=== PATIENT | female | born 1935 | race Caucasian/White ===

== ENCOUNTER 2016-09-06 11:57 | Inpatient (IN) | payer MEDICARE, OTHER ==
[~2016-09-06] VITALS: Ht 147.3 cm; Wt 53.0 kg
--- NOTE | ~2016-09-06 | HP ---
PATIENT'S NAME: [facility] AGE: 81 Y [address] ROOM: [place] [address] LOCATION: GPCU ADMIT DATE: 09/06/2016 History & Physical DISCHARGE DATE: FAMILY PHYSICIAN: Darline Real MD ATTENDING PHYSICIAN: DYLAN GOOD DATE OF SERVICE: 09/06/16 CHIEF COMPLAINT: Abnormal carotid duplex found during screening. HISTORY OF PRESENTING ILLNESS: This is an 81-year-old female, currently in the emergency room being evaluated for right carotid artery stenosis. The patient went to a health screening at her local [facility] and was found to have critical stenosis of her right carotid artery on ultrasound. The patient is currently asymptomatic and denies any changes in speech, vision, or strength. She denies any history of TIA or amaurosis fugax. The patient denies smoking history, however, when I reviewed patient's previous history and physical, it is positive for smoking history. She denies any diabetic history. She denies any coronary disease. The patient has a history of hypertension and increased cholesterol. She denies any shortness of breath, chest pain, nausea, vomiting, diarrhea, or abdominal pain. She denies any claudication. The patient does take aspirin and Lipitor. She denies any fevers or chills. Denies any pain. Upon arrival to the ER, the patient did have a carotid ultrasound done by hospital staff, which revealed highest velocities of 292/78. CTA ordered and there is 90% stenosis of right ICA. PAST MEDICAL HISTORY: Essential hypertension, hypercholesterolemia. SURGICAL HISTORY: 1. Tonsillectomy. 2. Appendectomy. 3. x2. 4. Orthopedic surgery. FAMILY HISTORY: Family history of MT and CVA. SOCIAL HISTORY: There is a history of tobacco abuse unsure of amount. None currently. Denies any alcohol or illicit drug use. ALLERGIES: NO KNOWN DRUG ALLERGIES. PATIENT'S NAME: [facility] AGE: 81 Y [address] ROOM: [address] [place] [address] LOCATION: GPCU ADMIT DATE: 09/06/2016 History & Physical DISCHARGE DATE: FAMILY PHYSICIAN: Darline Real MD ATTENDING PHYSICIAN: DYLAN GOOD MEDICATIONS: See current medication reconciliation. REVIEW OF SYSTEMS: A 10-point review of systems completed, positives addressed in the history of presenting illness. PHYSICAL EXAMINATION: VITAL SIGNS: Temperature 96.1, heart rate 60, respiratory rate 20, oxygen saturations 96% on room air, blood pressure 193/81. GENERAL: The patient is in no acute distress. She is alert and oriented x3. Does appear anxious. SKIN: Warm, pink, and dry without rashes. HEENT: Head: Normocephalic and atraumatic. Ears without drainage. Eyes: Sclerae white. Conjunctivae pink. Extraocular movements intact. PERRLA. Nose without drainage. Throat: Oral mucosa pink and moist. No exudate or erythema. NECK: Without adenopathy. No evidence of JVD. Trachea midline. RESPIRATORY: Lung sounds are clear to auscultation bilaterally. Even and nonlabored. CARDIOVASCULAR: Regular rate and rhythm. Systolic murmur. GASTROINTESTINAL: Bowel sounds active x4. Soft and nontender. No organomegaly. EXTREMITIES: Bilateral radial, femoral, dorsalis pedis, and posterior tibialis pulses. 2+ on palpation. No cyanosis. No edema. Warm to touch. Active range of motion throughout. NEUROLOGICAL: No focal deficits. Strength 5/5 bilaterally. No deficits in sensation. LABORATORY DATA: Chemistry: Sodium 142, potassium 4.2, chloride 108, CO2 of 27, BUN 19, creatinine 0.8, glucose 109. Hematology: White blood cell count 9.3, hemoglobin 13.3, hematocrit 41.0, platelets 248. IMPRESSION AND PLAN: Right carotid artery stenosis. We have reviewed CTA results as well as carotid duplex, which is supportive of critical carotid artery stenosis, requiring right carotid endarterectomy tonight. Plan for right carotid endarterectomy with Dr. Good. Dr. Good has discussed plan with the patient along with risks and benefits. The patient has been n.p.o. since last night and will continue to remain n.p.o. until surgery. The patient is to continue on aspirin. The patient has received 2 g of Ancef prior to procedure. The patient will be admitted to the hospital postoperatively. PATIENT'S NAME: [facility] AGE: 81 Y [address] ROOM: [place] [address] [facility] ADMIT DATE: 09/06/2016 History & Physical DISCHARGE DATE: FAMILY PHYSICIAN: Darline Real MD ATTENDING PHYSICIAN: DYLAN GOOD MARYANN CHANCE APRN FOR DYLAN GOOD MD TO/modl /[id number] D: [id number] T: [id number] HISTORY & PHYSICAL
--- NOTE | ~2016-09-06 | CON ---
PATIENT'S NAME: [facility] AGE: 81 Y [address] ROOM: [place] [address] LOCATION: GPCU ADMIT DATE: 09/06/2016 Consultation DISCHARGE DATE: FAMILY PHYSICIAN: Darline Real MD ATTENDING PHYSICIAN: ERIC GOOD DATE OF CONSULTATION: 09/06/2016 REFERRING PHYSICIAN: Eric Good MD REASON FOR CONSULTATION: Medical management. HISTORY OF PRESENT ILLNESS: The patient is an 81-year-old female, who went to a free health screening at a [employer] early in the morning today. She was found to have critical right carotid artery stenosis. She has undergone a right carotid endarterectomy in the course of the day today. She is now recovering from the procedure and a hospitalist consult was requested. At this point, the patient has no complaints aside from fatigue. She denies any chest pain, shortness of breath, nausea, vomiting, diarrhea, or palpitations. REVIEW OF SYSTEMS: All systems have been reviewed and are negative aside from pertinent positives mentioned above. PAST MEDICAL HISTORY: As reported by the patient is that of hypertension. PAST SURGICAL HISTORY: None recently. SOCIAL HISTORY: The patient has not had any history or ongoing toxic habits. FAMILY HISTORY: Significant for multiple strokes on both sides of the family. CURRENT MEDICATIONS: 1. Aspirin. 2. Atorvastatin 80. 3. Calcium. 4. Vitamin D. 5. Cholecalciferol. PATIENT'S NAME: [facility] AGE: 81 Y [address] ROOM: [place] [address] LOCATION: GPCU ADMIT DATE: 09/06/2016 Consultation DISCHARGE DATE: FAMILY PHYSICIAN: Darline Real MD ATTENDING PHYSICIAN: ERIC GOOD 6. Zetia. 7. Metoprolol 50 daily. PHYSICAL EXAMINATION: VITAL SIGNS: Blood pressure of 180/74, heart rate is in the 70s, saturating 100% on 2 L nasal cannula, respirations are 12, and she is afebrile. GENERAL APPEARANCE: Well-developed, well-nourished elderly female, in no acute distress. NEUROLOGIC: Nonfocal. HEENT: Eye exam shows pupils are equal and reactive to light. LYMPHATIC: Shows no cervical lymphadenopathy. ENDOCRINE: Shows no thyromegaly. LUNGS: Clear to auscultation bilaterally. HEART: Reveals regular rate and rhythm with 2/6 noncrescentic murmur. GI: Abdomen is soft, nontender, nondistended. : No costovertebral angle tenderness. VASCULAR: 2+ pedal pulses. SKIN: Reveals a soft dressing over the right carotid artery. PSYCHIATRIC: Reveals appropriate mood, cognition, and affect. MUSCULOSKELETAL: Unremarkable. LABORATORY DATA: Studies done today show an unremarkable CBC and a metabolic profile. IMPRESSION AND RECOMMENDATION: This is an 81-year-old female, postop day 0 for right carotid endarterectomy. Individual problems to be addressed: 1. Accelerated hypertension. The patient has been given 2 doses of labetalol for her blood pressure. We will restart her on her home metoprolol. If labetalol is insufficient to control her blood pressure, we will put her on Cardene drip and consider adding an additional blood pressure agent. 2. A 2/6 systolic murmur most likely consistent with mitral regurgitation; the patient told me that she has had an echocardiogram with Dr. Brandon approximately 5 years ago and this can be followed up as outpatient. 3. Pain control and deep vein thrombosis prophylaxis as per primary service. DISPOSITION: We will inform Dr. Real, the patient's primary care provider, that she is in the hospital and we will give them a courtesy consult and see if Dr. Real or her partners would like to take over the management of this patient. Additional management will depend on clinical course. Time dedicated to this patient encounter is 35 minutes. PATIENT'S NAME: [facility] AGE: 81 Y [address] ROOM: [address] [address] LOCATION: GPCU ADMIT DATE: 09/06/2016 Consultation DISCHARGE DATE: FAMILY PHYSICIAN: Darline Real MD ATTENDING PHYSICIAN: ERIC GOOD MD LEONCIO PARSONS/tonny /[id number] d: 09/07/16 0256 t: 09/10/16 2034, CONSULTATION REPORT
--- NOTE | ~2016-09-06 | ER ---
PATIENT'S NAME: [facility] AGE: 81 Y [address] ROOM: [place] [id number] LOCATION: GPCU ADMIT DATE: 09/06/2016 ER/Outpatient Report DISCHARGE DATE: FAMILY PHYSICIAN: Darline Real MD ATTENDING PHYSICIAN: DYLAN GOOD Time of Arrival: 1157 hours. Time of Evaluation: 1235 hours. CHIEF COMPLAINT: Possible carotid artery blockage. HISTORY OF PRESENT ILLNESS: This is an 81-year-old female, who presents to the ER, who states she was having a screening done [facility]. They did a Doppler her carotid arteries, and told her that it looks bad, and that she should either followup with her primary care physician or go straight to the emergency room. She did tell them that her primary care physician was out of the office today, so they suggested that she come to the emergency room. The patient states she has had no symptoms, no visual changes, no lightheadedness or dizziness. No shortness of breath. No cough. No chest pain. She states she does have history of hypertension, hypercholesterolemia. Other than that is negative. She denies any troubles with urination. No nausea, vomiting, or diarrhea. ALLERGIES: NO KNOWN ALLERGIES. MEDICATIONS: Please see medication list in nurse's notes. PAST MEDICAL HISTORY: 1. Hypertension. 2. Hypercholesterolemia. 3. She states that she is an anxious person. FAMILY HISTORY: She has a family history of her parents passing away of a myocardial infarction as well as CVA. SOCIAL HISTORY: Denies smoking, drug, or alcohol use. REVIEW OF SYSTEMS: A 10-point review of systems was completed and was negative with the exception of those discussed in the HPI. PATIENT'S NAME: [facility] AGE: 81 Y [address] ROOM: [address] [address] LOCATION: GPCU ADMIT DATE: 09/06/2016 ER/Outpatient Report DISCHARGE DATE: FAMILY PHYSICIAN: Darline Real MD ATTENDING PHYSICIAN: DYLAN GOOD PHYSICAL EXAMINATION: VITAL SIGNS: Weight 50 kg taken, blood pressure is 193/81, pulse 60, respirations 20, temperature 96.1 degrees tympanically, saturations 96% on room air. Lucretia Coma Score is 15. GENERAL: An alert, slightly anxious female, in no acute distress. HEENT: Head: Normocephalic. She does display moist mucous membranes. Eyes: Pupils are equal and reactive to light. LUNGS: Clear to auscultation bilaterally. HEART: Regular rate and rhythm. She does have a murmur present. ABDOMEN: Soft, nontender. She has good bowel sounds throughout. EXTREMITIES: No clubbing or cyanosis. She has full range of motion of all limbs. SKIN: Warm, dry, and intact. LABORATORY DATA: CBC: White count is 9.3, hemoglobin is 13.3, platelets 248, ANC is 6.4. CMS: Glucose 109, creatinine 0.8, BUN 19, estimated GFR is greater than 60. We did do a carotid Dopplers here in the emergency room, and the tech reports that her right carotid is critical, and her left carotid is moderate to severely blocked. CTA was ordered after carotid Dopplers. IMPRESSION: Right Carotid artery stenosis. ASSESSMENT AND PLAN: Discussed the patient's care with Dr. Uriostegui. We did start an IV in the ER for her CT scan. The patient's primary care physician is Dr. Real. I did call Dr. Good, our vascular surgeon and spoke with him regarding the patient. He states that he would like her to have a CT angiogram done, and then he will be coming to evaluate her in the ER. The patient rested comfortably here her entire stay, and we will be turning the care over to Dr. Good at this time. The patient and the patient's understand and agree with care. CODY WOODARD PA-C FOR MD MICHEAL ABRAMS/tonny /[id number] d: 09/06/162103 t: 09/14/16921, OUTPATIENT REPORT
--- NOTE | ~2016-09-06 | ENPV ---
Carotid Duplex Study Demographics Patient Name MATILDE BAZAN Date of Study 09/06/2016 Patient Number [id number] Gender Female Date of 1935 Age 81 Visit Number [id number] Height Accession Number [id number] Weight Room Number G6337 BSA BMI Referring Jefferson WILSON Interpreting Florentino Reyes MD Physician Physician Physician Ordering Jefferson Coker Accordion Tuner Physician STEVE Embedded Systems Designer Lynda Steel, RT,RVT,RDCS Conclusions Summary Critical RIght Carotid stenosis. Procedure Type of Study: Cerebral:Carotid, Carotid Doppler Bilateral. Appropriate Use Criteria:9 Patient Status:STAT. Study Location:ER. Technical Quality:Adequate visualization. - Preliminary reported to:Quentin GARDNER nurse. Velocities are measured in cm/s ; Diameters are measured in cm Carotid Right Measurements Carotid Left Measurements + +--------+--------+ + + + +--------+- -------+ + + !Location !PSV !EDV !Angle !%Stenosis ! !Location !PSV !E DV !Angle !%Stenosis ! + +--------+--------+ + + + +--------+- -------+ + + !Prox CCA !62 !15 !56 !1-39% ! !Prox CCA !68 !1 4 !38 !1-39% ! + +--------+--------+ + + + +--------+- -------+ + + !Dist CCA !44 !10 !56 !1-39% ! !Dist CCA !75 !1 6 !58 !1-39% ! + +--------+--------+ + + + +--------+- -------+ + + !Prox ICA !267 !86 !38 !80-99% ! !Prox ICA !72 !1 4 !58 !40-59% ! + +--------+--------+ + + + +--------+- -------+ + + !Mid ICA !280 !72 !38 !80-99% ! !Mid ICA !176 !3 8 !52 !60-79% ! + +--------+--------+ + + + +--------+- -------+ + + !Dist ICA !292 !78 !38 !80-99% ! !Dist ICA !130 !4 0 !42 !40-59% ! + +--------+--------+ + + + +--------+- -------+ + + !Prox ECA !100 ! !52 ! ! !Prox ECA !81 ! !58 ! ! + +--------+--------+ + + + +--------+- -------+ + + !Vertebral !49 ! !56 ! ! !Vertebral !36 ! !38 ! ! + +--------+--------+ + + + +--------+- -------+ + + - There is antegrade vertebral flow noted on the right side. - There is antegrade verte bral flow noted on the left side. - Add'l Measurements:Subclavian PRV 149 cm/sICAPSV/CCAPSV - Add'l Measurements:Subcl yaima PRV 86 cm/sICAPSV/CCAPSV 4.73.ICAEDV/CCAEDV 5.8. 2.58.ICAEDV/CCAEDV 2.85. Signature dtt: DYLAN GARCIA dtd: 09/06/16 1315 Physician Self Edit
--- NOTE | ~2016-09-06 | OR ---
PATIENT'S NAME: MATILDE BAZAN [facility] AGE: 81 Y [address] ROOM: [address] [address] LOCATION: GPCU ADMIT DATE: 09/06/2016 OR/Procedure Report DISCHARGE DATE: FAMILY PHYSICIAN: Darline Real MD ATTENDING PHYSICIAN: ERIC GOOD SURGEON: Eric Good MD DRAFTER SEISMOGRAPH: DATE OF PROCEDURE: 09/06/2016 PREOPERATIVE DIAGNOSIS: High-grade right internal carotid artery stenosis. POSTOPERATIVE DIAGNOSIS: High-grade right internal carotid artery stenosis. PROCEDURES: Right carotid endarterectomy. LADDERMAN: Treasure Jaramillo. ANESTHESIA: General. ESTIMATED BLOOD LOSS: 100 mL. OPERATIVE FINDINGS: Near-occlusive lesion on the right ICA, heavily calcified, neurologically intact at the end of the case. DESCRIPTION OF PROCEDURE: The patient was brought to the operating room, placed under general anesthesia, prepped and draped in a sterile manner. Preoperative time-out was performed. We made a standard incision along the anterior border of the sternocleidomastoid muscle. We transected the platysma; dissected the internal jugular; identified the facial vein, which was ligated and transected; dissected out the common external, internal, as well as the superior thyroid. A clip was placed on the superior thyroid. We then placed clamps on the 3 major vessels after administering 5000 units of heparin. We made arteriotomy in the common, extended onto the internal using Bird scissors. We then passed a 5 x 3 Sundt shunt. Flow was confirmed using Doppler. We removed the plaque in its entirety. We then performed a standard 6-0 [place] anastomosis bovine pericardial patch. Before completing anastomosis, we clamped and removed the shunt. We allowed for backbleeding at the internal as well as flushing of the common. We completed the anastomosis, removed the clamp from the common, and the external, waited 10 heartbeats and removed the clamp from the internal. Any bleeding sites were repaired with 6-0 Prolene. We then reversed the heparin with use of protamine. We used thrombin locally in the wound. Deep layers were closed with 2-0 and 3-0 Vicryl. Skin was closed with running 4-0 Monocryl. The patient tolerated the procedure well and awoke in the operating room, neurologically intact, transferred to the floor. PATIENT'S NAME: MATILDE BAZAN [facility] AGE: 81 Y [address] ROOM: [address] [address] LOCATION: GPCU ADMIT DATE: 09/06/2016 OR/Procedure Report DISCHARGE DATE: FAMILY PHYSICIAN: Darline Real MD ATTENDING PHYSICIAN: ERIC GOOD ERIC GOOD MD FKM/modl /[id number] d: 09/07/16 0205 t: 09/09/16 1001, OPERATIVE SUMMARY
[2016-09-06 13:17] LABS: BASOPHIL # 0.1 K/uL (0.0-0.2); BASOPHIL % 1.2 %; EOSINOPHIL # 0.1 K/uL (0.0-0.5); EOSINOPHIL % 0.8 %; HEMOGLOBIN 13.3 g/dL (10.0-15.0); IMMATURE GRANULOCYTE % 0.2 %; LYMPHOCYTE # 2.1 K/uL (0.8-4.0); LYMPHOCYTE % 22.6 %; MCH 30.5 pg (27.0-34.0); MCHC 32.4 gm/dL (32.0-36.5); MONOCYTE # 0.6 K/uL (0.0-1.0); MPV 10.5 fl (9.4-12.4); NEUTROPHIL # (ANC) 6.4 K/uL (1.8-7.8); NEUTROPHIL % 69.2 %; NRBC % 0 /100WBC (0-0.00); PLATELET COUNT 248 K/uL (150-450); RBC 4.36 M/uL (3.00-5.00); RDW-CV 13.6 % (11.9-14.6); WBC 9.3 K/uL (4.0-11.0)
[2016-09-06 13:35] LABS: ALBUMIN 4.2 gm/dL (3.5-5.0); ALK PHOS 81 IU/L (33-138); ALT 32 IU/L (12-78); ANION GAP 11.2 (10.0-19.0); AST 25 IU/L (10-40); BLOOD UREA NITROGEN 19 mg/dL (6-24); CALCIUM 9.5 mg/dL (8.5-10.5); CHLORIDE 108 mMol/L (96-110); CO2 27 mMol/L (22-32); CREATININE 0.8 mg/dL (0.5-1.1); ESTIMATED GFR (MDRD EQUATION) > 60; POTASSIUM 4.2 mMol/L (3.7-5.1); SODIUM 142 mMol/L (135-145); TOTAL BILIRUBIN 0.9 mg/dL (0.0-1.5); TOTAL PROTEIN 7.6 g/dL (6.0-8.4)
[2016-09-06] MEDS ORDERED: LIPITOR80 MG PO (20:03)
[2016-09-06] MEDS ORDERED: LOPRESSOR50 MG PO (20:04)
[2016-09-06] MEDS ORDERED: ZETIA10 MG PO (20:04)
[2016-09-06] MEDS ORDERED: ASPIRIN LO-DOSE81 MG PO (20:05)
[2016-09-06] MEDS ORDERED: VITAMIN D1000 UNIT PO (20:05)
[2016-09-06] MEDS ORDERED: CALTRATE 600 WI1 TAB PO (20:06)
--- NOTE | 2016-09-07 00:23 | NUR ---
Significant Event: Patient arrived to emergency room for evaluation of right carotid artery stenosis. Patient went to OR for right endarterectomy. Patient arrived on the floor at 1856 alert and orientated x3. Dressing to right neck remains clean, dry, and intact. ART line to right radial remains intact and readings are clearly designated on shelter monitor. Neck circumference measures at 35.5. Patient has past medical history of hypertension and hyperlipidemia.
--- NOTE | 2016-09-07 05:05 | NUR ---
Significant Event: Pt A&Ox3. VS stable, on 1L nc. Did have elevated pressures earlier in the night, gave labetolol x2 then Dr. Nicole ordered cardene gtt. Pt's pressures better and stopped the cardene gtt. Incision dressing remains C/D/I. Incision has SQ sutures and dermabond closure, with primapore dressing overtop. Pulled ART line this AM. Ambulation is up as tolerated. Have been getting to BSC. Fluids are to be continued to run until 0700. PIV x2 RAC--currently connected to cardene; LH with D5 1/2NS & 20KCl @ 75. Pt does have audible heart murmur. Follow up: Wean down to RA. Advance activity. Continue plan of care.
[2016-09-07 05:20] LABS: ANION GAP 12.3 (10.0-19.0); BLOOD UREA NITROGEN 13 mg/dL (6-24); CALCIUM 8.3 mg/dL (8.5-10.5); CHLORIDE 106 mMol/L (96-110); CO2 23 mMol/L (22-32); CREATININE 0.8 mg/dL (0.5-1.1); ESTIMATED GFR (MDRD EQUATION) > 60; POTASSIUM 4.3 mMol/L (3.7-5.1); SODIUM 137 mMol/L (135-145)
[2016-09-07 05:56] LABS: BASOPHIL % 0.2 %; HEMOGLOBIN 10.9 g/dL (10.0-15.0); IMMATURE GRANULOCYTE # 0.1 K/uL (0.0-0.3); IMMATURE GRANULOCYTE % 0.5 %; LYMPHOCYTE # 1.1 K/uL (0.8-4.0); LYMPHOCYTE % 9.3 %; MCH 30.8 pg (27.0-34.0); MCV 93.2 fl (83.0-98.0); MONOCYTE # 0.7 K/uL (0.0-1.0); MONOCYTE % 6.3 %; MPV 11.2 fl (9.4-12.4); NEUTROPHIL # (ANC) 9.5 K/uL (1.8-7.8); NEUTROPHIL % 83.7 %; NRBC % 0 /100WBC (0-0.00); PLATELET COUNT 202 K/uL (150-450); RBC 3.54 M/uL (3.00-5.00); RDW-CV 13.5 % (11.9-14.6); WBC 11.4 K/uL (4.0-11.0)
[2016-09-07] MEDS ORDERED: ZOFRAN8 M1 PO (10:41)
--- NOTE | 2016-09-07 15:32 | NUR ---
orders received to discharge patient home. tele monitor, and iv dc'd. pt still c/o nausea, but wanting to go home. zofran was given earlier this am with mild improvement.Suad Samaniego'anoop. [employer] called, and notified of patient request to go home, and ok with it. discharge instructions explainned and given to patient and . no further questions.taken downstairs per wheelchair by primary rn.
[2016-09-08] MEDS ORDERED: COLACE100 MG PO (18:44)
[2016-09-08] MEDS ORDERED: MIRALAX17 GM PO (18:45)
[2016-09-08] MEDS ORDERED: PRINIVIL (ZESTRI5 MG PO (18:45)
[2016-09-08] MEDS ORDERED: ZOFRAN4 MG PO (18:49)
== END 2016-09-07 13:30 | disposition disaster alternative care site (69) | DRG 39 ==
LOC: GMED 11:57 → GPCU 15:08
PROVIDERS: Physician Assistant Medical; ADMIT Surgery Vascular Surgery
PROC: 03CK0ZZ Extirpation of Matter from Right Internal Carotid Artery, Open Approach (ICD-10-PCS; principal; 2016-09-06)
PROC: 03UK0JZ Supplement Right Internal Carotid Artery with Synthetic Substitute, Open Approach (ICD-10-PCS; 2016-09-06)
DX: I65.21 Occlusion and stenosis of right carotid artery (principal); I34.0 Nonrheumatic mitral (valve) insufficiency; I10 Essential (primary) hypertension; E78.5 Hyperlipidemia, unspecified; M81.0 Age-related osteoporosis without current pathological fracture; E78.00 Pure hypercholesterolemia, unspecified; F41.9 Anxiety disorder, unspecified; Z87.891 Personal history of nicotine dependence
CPT/HCPCS: J0690; J1100; J1644; J1650; J2250; J2405; J2720; J3480; J7050; J7120

== ENCOUNTER 2016-09-07 20:26 | Observation (INO) | payer MEDICARE, OTHER ==
[~2016-09-07] VITALS: Ht 147.3 cm; Wt 52.8 kg
--- NOTE | ~2016-09-07 | HP ---
PATIENT'S NAME: [facility] AGE: 81 Y [address] ROOM: [place] [address] LOCATION: GPCU ADMIT DATE: 09/08/2016 History & Physical DISCHARGE DATE: FAMILY PHYSICIAN: Darline Real MD ATTENDING PHYSICIAN: TALYA MCKINLEY V DATE OF SERVICE: CHIEF COMPLAINT: I do not feel well. HISTORY OF PRESENT ILLNESS: The patient is an 81-year-old female postop day 1 for elective right carotid endarterectomy for asymptomatic critical internal carotid artery stenosis. The patient had an uneventful course after her surgery in the course of last 24 hours and was discharged today. She comes back to the hospital with complaints of just "not feeling well." She really is not able to specify any other symptoms that are bothering her. She does endorse some abdominal discomfort, but no diarrhea, nausea, vomiting, or constipation. No chest pain or diaphoresis. In the ER, the patient was found to be transiently hypoxic in high 80s and returned to normal saturations on 2 L nasal cannula. When I saw the patient, she appears quite comfortable, and when I took the oxygen off, her saturations remained in the low 90s. REVIEW OF SYSTEMS: She denies any significant pain, drainage to the postsurgical site, dysuria, or syncope. All systems have been reviewed and negative except for pertinent positives mentioned above. PAST MEDICAL HISTORY: 1. Status post carotid endarterectomy, postop day 1. 2. Hypertension. SOCIAL HISTORY: The patient has no history of ongoing toxic habits. FAMILY HISTORY: Reviewed and is noncontributory due to advanced age. CURRENT MEDICATIONS: 1. Aspirin. 2. Atorvastatin. PATIENT'S NAME: [facility] AGE: 81 Y [address] ROOM: [place] [address] LOCATION: GPCU ADMIT DATE: 09/08/2016 History & Physical DISCHARGE DATE: FAMILY PHYSICIAN: Darline Real MD ATTENDING PHYSICIAN: TALYA MCKINLEY V 3. Calcium with vitamin D. 4. Cholecalciferol. 5. Zetia. 6. Metoprolol. PHYSICAL EXAMINATION: VITAL SIGNS: Blood pressure 164/80, heart rate is in the 80s, saturation as per HPI, and temperature 98.2. GENERAL: Appears as a well-developed, well-nourished, elderly female, in no acute distress. NEUROLOGIC: Nonfocal. EYES: Exam shows pupils are equal and reactive to light. LYMPHATICS: Exam shows no cervical lymphadenopathy. ENT: Reveals a well-healing dry and nondraining right carotid endarterectomy postop incision. LUNGS: Clear to auscultation in all [place]. HEART: Regular rate and rhythm with no appreciable murmurs, gallops, or rubs. ABDOMEN: Soft, nontender, nondistended. : Reveals no costovertebral angle tenderness. VASCULAR: A 2+ pedal pulses. MUSCULOSKELETAL: No muscle or joint abnormalities. PSYCHIATRIC: Appropriate mood, cognition, and affect. LABORATORY DATA: Studies performed in the ER significant for an unremarkable chest x-ray and an unremarkable basic metabolic profile and a CBC. ASSESSMENT AND PLAN: This is an 81-year-old female who will be admitted for observation with transient hypoxia after recently having undergone a right carotid endarterectomy. We will monitor her oxygen saturation in the hospital and we will see how she is feeling in the morning. We will provide her with incentive spirometry as she might just have some atelectasis related to recent surgery. Additional management will depend on clinical course. Time dedicated to this patient's encounter is 25 minutes. MD LEONCIO PARSONS/tonny PATIENT'S NAME: [facility] AGE: 81 Y [address] ROOM: [place] [address] LOCATION: GPCU ADMIT DATE: 09/08/2016 History & Physical DISCHARGE DATE: FAMILY PHYSICIAN: Darline Real MD ATTENDING PHYSICIAN: TALYA MCKINLEY V /[id number] D: [id number] T: [id number] HISTORY & PHYSICAL
--- NOTE | ~2016-09-07 | ER ---
PATIENT'S NAME: [facility] AGE: 81 Y [address] ROOM: [address] [address] LOCATION: GPCU ADMIT DATE: 09/08/2016 ER/Outpatient Report DISCHARGE DATE: FAMILY PHYSICIAN: Darline Real MD ATTENDING PHYSICIAN: TALYA MCKINLEY V CHIEF COMPLAINT: Shortness of breath, postop carotid surgeries. TIME OF THE PATIENT ARRIVAL: 2025. TIME OF THE PATIENT EVALUATION: 2025. HISTORY OF PRESENT ILLNESS: This is an 81-year-old female who presents to the ER who states that she is not feeling well. The patient was seen here in the emergency room yesterday and was found to have a right carotid stenosis and underwent carotid endarterectomy by Dr. Good. The patient was doing well today, she was dismissed home from the hospital around 2 o'clock this afternoon, and she does state that she is just not feeling well. She does feel short of breath. She denies any chest pain, no vomiting, no diarrhea, and no changes in vision. She denies any other problems at this time. ALLERGIES: NO KNOWN ALLERGIES. MEDICATIONS: Please see medication list nurse's notes. PAST MEDICAL HISTORY: Essential hypertension, hypercholesterolemia, tonsillectomy, appendectomy, C- section x2, orthopedic surgery, and a recent carotid endarterectomy. SOCIAL HISTORY: Denies smoking, drug, or alcohol use. REVIEW OF SYSTEMS: A 10-point review of systems was completed and was negative with the exception of those discussed in the HPI. PHYSICAL EXAMINATION: VITAL SIGNS: Height 4 feet, 10 inches stated, weight 52.5 kg taken, blood pressure is 179/83, pulse 79, respirations 14, temperature 98.2 degrees PATIENT'S NAME: [facility] AGE: 81 Y [address] ROOM: [address] [address] LOCATION: GPCU ADMIT DATE: 09/08/2016 ER/Outpatient Report DISCHARGE DATE: FAMILY PHYSICIAN: Darline Real MD ATTENDING PHYSICIAN: TALYA MCKINLEY V tympanically, and saturations 90% on room air. GENERAL: Alert, slightly anxious appearing 81-year-old female in no acute distress. HEENT: Head: Normocephalic. She has tacky mucous membranes. Eyes: Pupils are equal, reactive to light. NECK: She does have a close incision on the right-side of her neck. There is some ecchymosis around there. There is no active drainage from the incision site. LUNGS: Clear to auscultation bilaterally. HEART: She does have a systolic murmur noted. ABDOMEN: Soft, it is nontender, she has good bowel sounds throughout. EXTREMITIES: No clubbing or cyanosis. She does have full range of motion of all limbs. MUSCULOSKELETAL: She has no edema. She has good sensation bilaterally upper and lower extremities. NEUROLOGICAL: Gait is steady. She has equal strength bilaterally. No focal deficits. LABORATORY DATA: CBC: White count is 11.8, hemoglobin is 11.7, and platelets 210. ANC is 8.5. CMS glucose is 120 otherwise unremarkable. Chest x-ray was negative for any infiltrate. KUB was unremarkable. IMPRESSION: 1. Hypoxia. 2. Status post carotid endarterectomy. ASSESSMENT AND PLAN: I did discuss the patient's care with Dr. Uriostegui. Dr. Uriostegui also evaluated the patient. While the patient was here, her oxygen saturations kept dipping down into the mid 80s on room air, we would apply the oxygen, her saturations would increase back up to 97%, we would then titrate her back down off the oxygen, and her oxygen saturations would go back down into the mid 80s. Dr. Uriostegui did speak with Dr. Good in regards to the patient as well as Dr. Mckinley. Dr. Mckinley will be coming down to the emergency room to evaluate and admit the patient for observation this evening. The patient and the patient's understand and agree with care. CODY WOODARD PA-C FOR MD MICHEAL ABRAMS/tonny I have personally evaluated this patient. I agree with the assessment and plan as documented above. Kenney Uriostegui MD PATIENT'S NAME: MATILDE BAZAN [facility] AGE: 81 Y [address] ROOM: [place] [address] LOCATION: GPCU ADMIT DATE: 09/08/2016 ER/Outpatient Report DISCHARGE DATE: FAMILY PHYSICIAN: Darline Real MD ATTENDING PHYSICIAN: TALYA MCKINLEY V /[id number] d: 09/08/16525 t: 09/14/16924, OUTPATIENT REPORT
[~2016-09-07 20:26] MED LIST: ASPIRIN LO-DOSE81 MG PO; CALTRATE 600 WI1 TAB PO; LIPITOR80 MG PO; LOPRESSOR50 MG PO; VITAMIN D1000 UNIT PO; ZETIA10 MG PO; ZOFRAN8 M1 PO
[2016-09-07 20:57] LABS: BASOPHIL # 0.1 K/uL (0.0-0.2); BASOPHIL % 0.4 %; EOSINOPHIL % 0.3 %; HEMOGLOBIN 11.7 g/dL (10.0-15.0); IMMATURE GRANULOCYTE % 0.3 %; LYMPHOCYTE # 2.2 K/uL (0.8-4.0); LYMPHOCYTE % 18.6 %; MCH 31.1 pg (27.0-34.0); MCHC 33.4 gm/dL (32.0-36.5); MCV 93.1 fl (83.0-98.0); MONOCYTE % 8.5 %; MPV 10.5 fl (9.4-12.4); NEUTROPHIL # (ANC) 8.5 K/uL (1.8-7.8); NEUTROPHIL % 71.9 %; NRBC % 0 /100WBC (0-0.00); PLATELET COUNT 210 K/uL (150-450); RBC 3.76 M/uL (3.00-5.00); RDW-CV 13.5 % (11.9-14.6); WBC 11.8 K/uL (4.0-11.0)
[2016-09-07 21:11] LABS: ALBUMIN 3.5 gm/dL (3.5-5.0); ALK PHOS 68 IU/L (33-138); ALT 24 IU/L (12-78); ANION GAP 13.1 (10.0-19.0); AST 26 IU/L (10-40); BLOOD UREA NITROGEN 11 mg/dL (6-24); CALCIUM 8.6 mg/dL (8.5-10.5); CHLORIDE 102 mMol/L (96-110); CO2 26 mMol/L (22-32); CREATININE 0.8 mg/dL (0.5-1.1); ESTIMATED GFR (MDRD EQUATION) > 60; POTASSIUM 4.1 mMol/L (3.7-5.1); SODIUM 137 mMol/L (135-145); TOTAL PROTEIN 6.5 g/dL (6.0-8.4)
[2016-09-07 21:13] LABS: TOTAL BILIRUBIN 0.6 mg/dL (0.0-1.5)
--- NOTE | 2016-09-08 05:19 | NUR ---
Patient admitted to unit at 0030 for hypoxia. Patient discharged yesterday afternoon after having a right sided CEA, but presented back to ED for SOB. Incision is well approximated, glued. Patient on 1 ltr via nasal cannula, weaned down from 3 ltrs in the ED. SBA to bathroom. General diet. No c/o pain.
--- NOTE | 2016-09-08 05:37 | NUR ---
Patient admitted from the ED for hypoxia. Patient transported via wheelchair. IV patent in Left AC. No c/o pain. Admitting physician Dr. Nicole.
--- NOTE | 2016-09-08 15:42 | NUR ---
Introduced self and role of care management to patient and . They live in [place]. She states that she is able to do all her own ADL's. Her does assist as needed. She plans on returning home on discharge. She denies any need at this time. Will continue to follow.
--- NOTE | 2016-09-08 16:46 | NUR ---
Significant Event: GODD DAY UNTIL ABOUT 1430. BENJAMIN Lara APRN MAKING ROUNDS, WENT IN AND TALKED TO PT, BP AT THIS TIME WAS 208 SYSTOLIC. PT SAYS SHE DOES FEEL VERY WELL BUT NOTHING SPECIFIC THAT SHE COULD PIN POINT. NEXT BP ABOUT 15 MINUTES LATER STILL 200'S. AFTER THAT BP'S BACK DOWN TO 160'S. PT ATE SOUP AND CRACKERS AND FEELS BETTER. DAUGHTER AND AT BEDSIDE Follow up: [facility], [facility].
[2016-09-08] MEDS ORDERED: COLACE100 MG PO (18:44)
[2016-09-08] MEDS ORDERED: PRINIVIL (ZESTRI5 MG PO (18:45)
[2016-09-08] MEDS ORDERED: MIRALAX17 GM PO (18:45)
[2016-09-08] MEDS ORDERED: ZOFRAN4 MG PO (18:49)
--- NOTE | 2016-09-08 20:04 | NUR ---
Patient discharged to home today at 1950. Discharge instructions read to patient and family and a copy of the discharge instructions was given to patient. Prescriptions given to patient. Patient escorted out via wheelchair and assisted into vehicle by Funmi Muniz RN.
== END 2016-09-08 19:40 | disposition disaster alternative care site (69) ==
LOC: GMED 20:26 → GPCU 09-08 00:17
PROVIDERS: Emergency Medicine; ADMIT Internal Medicine
DX: R09.02 Hypoxemia (principal); I10 Essential (primary) hypertension; R11.0 Nausea; E78.00 Pure hypercholesterolemia, unspecified; Z90.49 Acquired absence of other specified parts of digestive tract; Z98.890 Other specified postprocedural states; Z79.82 Long term (current) use of aspirin; Z79.899 Other long term (current) drug therapy
CPT/HCPCS: A9270; G0378; J2405; J7030